=== PATIENT | female | born 1970 | race Caucasian/White ===

== ENCOUNTER 2017-01-09 12:16 | Emergency (ER) | payer OTHER ==
[~2017-01-09] VITALS: Ht 170.2 cm; Wt 116.0 kg
[~2017-01-09 12:16] MED LIST: ALPRAZOLAM0.25 M2 PO; AMITRIPTYLINE H10 MG PO; ASPIR-LOW81 MG PO; CELEXA20 MG PO; CELEXA40 MG PO; Elavil PO; FUROSEMIDE20 MG PO; HYDROCHLOROTHIA25 MG PO; HYDROCHLOROTHIAZIDE; LEVOCETIRIZINE D5 MG PO; LEXAPRO10 MG PO; LEXAPRO20 MG PO; LISINOPRIL 5 MG TABL; LORTAB 5-325 M1 EACH PO; MONTELUKAST SOD10 MG PO; MOTRIN600 MG PO; MOTRIN800 MG PO; OMEPRAZOLE20 MG PO; ROBITUSSIN AC,T10 ML PO; ULTRAM50 MG PO; ZESTRIL,PRINIVIL5 MG PO
[2017-01-09] MEDS ORDERED: MOTRIN800 MG PO (14:10)
[2017-01-09] MEDS ORDERED: NORCO 5/3251 TABLET PO (14:10)
[2017-01-09 14:28] VITALS: BP 116/58
== END 2017-01-09 14:29 | disposition home or self-care (01) ==
LOC: EME 12:16
DX: S83.401A Sprain of unspecified collateral ligament of right knee, initial encounter (principal); M17.11 Unilateral primary osteoarthritis, right knee; I10 Essential (primary) hypertension
CPT/HCPCS: 73564; 99281; 99284

== ENCOUNTER 2017-04-02 15:10 | Emergency (ER) | payer OTHER ==
[~2017-04-02] VITALS: Ht 167.6 cm; Wt 99.2 kg
[~2017-04-02 15:10] MED LIST changes: +NORCO 5/3251 TABLET PO
[2017-04-02] MEDS ORDERED: XANAX1 MG PO (15:25)
[2017-04-02] MEDS ORDERED: WELLBUTRIN SR150 MG PO (15:26)
[2017-04-02] MEDS ORDERED: SINGULAIR10 MG PO (15:26)
[2017-04-02] MEDS ORDERED: TOPIRAMATE25 MG PO (15:27)
[2017-04-02] MEDS ORDERED: PERCOCET 5/31 TABLET PO (18:33)
[2017-04-02 18:54] VITALS: BP 107/58
[2017-04-04] MEDS ORDERED: LISINOPRIL5 MG PO (08:40)
[2017-04-04] MEDS ORDERED: LASIX40 MG PO (08:40)
[2017-04-04] MEDS ORDERED: PRILOSEC20 MG PO (08:40)
[2017-04-04] MEDS ORDERED: XYZAL5 MG PO (08:41)
[2017-04-04] MEDS ORDERED: RED YEAST RICE600 MG PO (08:42)
[2017-04-04] MEDS ORDERED: WELLBUTRIN SR150 MG PO (08:43)
[2017-04-04] MEDS ORDERED: CO Q-10100 MG PO (08:43)
[2017-04-04] MEDS ORDERED: OXYCODONE-ACET1 EACH PO (08:44)
[2017-04-04] MEDS ORDERED: MOTRIN800 MG PO (08:44)
== END 2017-04-02 18:54 | disposition home or self-care (01) ==
LOC: EME 15:10
DX: S30.0XXA Contusion of lower back and pelvis, initial encounter (principal); W10.9XXA Fall (on) (from) unspecified stairs and steps, initial encounter; Y92.008 Other place in unspecified non-institutional (private) residence as the place of occurrence of the external cause; J45.909 Unspecified asthma, uncomplicated; K21.9 Gastro-esophageal reflux disease without esophagitis; I10 Essential (primary) hypertension; F41.9 Anxiety disorder, unspecified
CPT/HCPCS: 72100; 73502; 99281; 99284

== ENCOUNTER 2017-04-05 10:56 | Day surgery (SDC) | payer OTHER ==
[~2017-04-05] VITALS: Ht 167.6 cm; Wt 115.6 kg
[~2017-04-05 10:56] MED LIST changes: +CO Q-10100 MG PO; +LASIX40 MG PO; +LISINOPRIL5 MG PO; +OXYCODONE-ACET1 EACH PO; +PERCOCET 5/31 TABLET PO; +PRILOSEC20 MG PO; +RED YEAST RICE600 MG PO; +SINGULAIR10 MG PO; +TOPIRAMATE25 MG PO; +WELLBUTRIN SR150 MG PO; +XANAX1 MG PO; +XYZAL5 MG PO
[2017-04-05 11:33] VITALS: BP 120/62
[2017-04-05 12:07] LABS: ANION GAP 8 MEQ/L (2-14); CHLORIDE 104 MEQ/L (99-109); POTASSIUM 3.3 MEQ/L (3.7-5.4); SAMPLE HEMOLYSIS CHECK 0; SAMPLE ICTERIC CHECK 0; SAMPLE LIPEMIA CHECK 0; SODIUM 140 MEQ/L (136-147); TOTAL BILIRUBIN 0.7 MG/DL (0.0-1.0)
[2017-04-05 12:12] LABS: ALKALINE PHOSPHATASE 33 IU/L (3-129); GFR ESTIMATE (CALCULATED) > 59 mL/min/; GLUCOSE 97 mg/dL (70-99); UREA NITROGEN (BUN) 12 mg/dL (9-23)
[2017-04-05 18:35] VITALS: BP 117/68
[2017-04-05 19:25] VITALS: BP 115/67
== END 2017-04-05 19:38 | disposition home or self-care (01) ==
LOC: SDC 10:56
PROVIDERS: Orthopaedic Surgery
DX: S83.241A Other tear of medial meniscus, current injury, right knee, initial encounter (principal); W19.XXXA Unspecified fall, initial encounter; M17.11 Unilateral primary osteoarthritis, right knee; I10 Essential (primary) hypertension; F41.8 Other specified anxiety disorders; E66.9 Obesity, unspecified; Z68.41 Body mass index [BMI] 40.0-44.9, adult
CPT/HCPCS: 80053; J0131; J0690; J1100; J1170; J2250; J2405; J3010

== ENCOUNTER 2017-11-23 17:06 | Emergency (ER) | payer OTHER ==
[~2017-11-23] VITALS: Ht 170.2 cm; Wt 118.2 kg
[2017-11-23 18:09] LABS: HEMATOCRIT 40.9 % (36.0-46.0); MCH 32.1 PG (29.0-34.0); MCHC 36.7 G/DL (30.0-36.0); MCV 87.6 FL (83-99); PLATELET COUNT 319 K/uL (156-360); RBC DIS.WIDTH-CV 12.8 % (11.8-14.6); RBC DIS.WIDTH-SD 41.1 % (39-53); RED BLOOD COUNT 4.67 M/uL (3.80-5.20); WHITE BLOOD COUNT 8.4 K/uL (4.1-10.2)
[2017-11-23 18:29] LABS: ALBUMIN 4.5 g/dL (3.2-4.8); CHLORIDE 94 mEq/L (99-109); POTASSIUM 2.8 mEq/L (3.7-5.4); SODIUM 134 mEq/L (136-147)
[2017-11-23 18:32] LABS: GLUCOSE 118 mg/dL (70-99); TOTAL PROTEIN 7.6 g/dL (6.4-8.3)
[2017-11-23 18:34] LABS: TOTAL BILIRUBIN 0.8 mg/dL (0.0-1.0)
[2017-11-23 18:35] LABS: ALKALINE PHOSPHATASE 56 IU/L (3-129); CREATININE 1.1 mg/dL (0.6-1.3); GFR ESTIMATE (CALCULATED) 57 mL/min/
[2017-11-23 18:36] LABS: UREA NITROGEN (BUN) 11 mg/dL (9-23)
[2017-11-23 18:37] LABS: AST (GOT) 26 IU/L (2-34)
[2017-11-23 18:38] LABS: ALT (GPT) 39 IU/L (3-49)
[2017-11-23 18:39] LABS: LIPASE 51 U/L (1.0-51.0)
[2017-11-23 18:56] LABS: BASOPHIL (%) 0.9 % (0-1); BASOPHIL COUNT 0.1 K/uL (0-0.1); EOSINOPHIL (%) 1.2 % (0-5); EOSINOPHIL COUNT 0.1 K/uL (0-0.3); IMMATURE GRANULOCYTE (%) 0.5 % (0.0-0.7); LYMPHOCYTE (%) 18.4 % (15-42); LYMPHOCYTE COUNT 1.6 K/uL (1.0-2.8); MONOCYTE COUNT 0.9 K/uL (0-0.8)
[2017-11-23 19:11] LABS: QUANTITATIVE HCG < 4.0 MIU/ML
[2017-11-23 20:43] LABS: APPEARANCE CLOUDY ((CLEAR)); BILIRUBIN NEGATIVE; BLOOD NEGATIVE; COLOR YELLOW ((YELLOW)); GLUCOSE (STRIP) NEGATIVE; KETONES NEGATIVE; LEUKOCYTES NEGATIVE; NITRITE NEGATIVE; PROTEIN (STRIP) 30; SPECIFIC GRAVITY 1.019 (1.000-1.030)
[2017-11-23 21:15] LABS: AMORPHOUS PHOSPHATE CRYSTALS 4+; BACTERIA 1+ /HPF; EPITHELIAL CELLS 1+ /HPF; MUCUS NONE SEEN /LPF; RED BLOOD CELLS 0-5 /HPF (0-5); UCUL ADDED? NO; WHITE BLOOD CELLS 0-5 /HPF (0-5)
[2017-11-23 21:49] VITALS: BP 134/87
== END 2017-11-23 21:50 | disposition home or self-care (01) ==
LOC: EME 17:06
DX: R10.11 Right upper quadrant pain (principal); E87.6 Hypokalemia; I10 Essential (primary) hypertension; J45.909 Unspecified asthma, uncomplicated; F41.9 Anxiety disorder, unspecified
CPT/HCPCS: 76705; 80053; 81003; 83690; 84702; 85025; 85027; 99281; 99284